=== PATIENT | male | born 1995 | race Caucasian/White ===

== ENCOUNTER 2019-03-01 11:23 | Emergency (ER) | payer OTHER ==
[~2019-03-01] VITALS: Ht 177.8 cm; Wt 88.8 kg
[2019-03-01 11:45] VITALS: BP 117/64
--- NOTE | 2019-03-01 11:47 | EKG ---
[address] [address] Test Date: 2019-03-01 Test Time: 11:34:12 Pat Name: DEB GONZALEZ Department: Room: Gender: M Physical Therapy Assistant: : 1995 Requested By: GUTIERREZ SALAS Order Number: [id number] Reading MD: Measurements Intervals [place] Rate: 84 P: 44 W[place]: 144 QRS: 38 QRSD: 88 T: 24 QT: 342 QTc: 407 Interpretive Statements SINUS RHYTHM QRS(T) CONTOUR ABNORMALITY CONSIDER ANTEROSEPTAL MYOCARDIAL DAMAGE POSSIBLY ABNORMAL ECG RI6.01 No previous ECG available for comparison
--- NOTE | 2019-03-01 11:49 | PHYS DOC ---
Past History Past Medical History: Anxiety, Asthma Past Surgical History: No Surgical History Smoking: Cigar Alcohol Use: Occasionally Drug Use: Marijuana Adult General Chief Complaint Chief Complaint: CHEST PAIN HPI HPI Patient is a 23-year-old male presents plenty of chest pain that has been present most of the past month. Increased pain with movement of his left arm. Pain is in his left chest. Also pain with deep breaths. Patient has had a intermittent mild cough. No fever. Nonproductive cough. No PE risk factors to include trauma, stasis, nor known hypercoagulable state. No relief with home medicines. Pain gets a little bit better with holding still. He was seen at his primary care office this morning and sent here for further evaluation. He reports being given ibuprofen at the office for this discomfort. Patient has a family history of grandfather having a heart attack in his 30s. [] Review of Systems Review of Systems Constitutional: Denies fever or chills [] Eyes: Denies change in visual acuity, redness, or eye pain [] HENT: Denies nasal congestion or sore throat [] Respiratory: Denies cough or shortness of breath [] Cardiovascular: No additional information not addressed in HPI [] GI: Denies abdominal pain, nausea, vomiting, bloody stools or diarrhea [] : Denies dysuria or hematuria [] Musculoskeletal: Denies back pain or joint pain [] Integument: Denies rash or skin lesions [] Neurologic: Denies headache, focal weakness or sensory changes [] Endocrine: Denies polyuria or polydipsia [] All other systems were reviewed and found to be within normal limits, except as documented in this note. Current Medications Current Medications Current Medications Medications (Trade) Dose Ordered Sig/Rosemarie Start Time Stop Time Status Last Admin Dose Admin Aspirin (Children'S Aspirin) 324 mg 1X ONCE 03/01/19 11:45 03/01/19 11:46 UNV Allergies Allergies Allergies Coded Allergies Type Severity Reaction Last Updated Verified No Known Drug Allergies 03/01/19 No Physical Exam Physical Exam Constitutional: Well developed, well nourished, no acute distress, non-toxic appearance. [] HENT: Normocephalic, atraumatic, bilateral external ears normal, oropharynx moist, no oral exudates, nose normal. [] Eyes: PERRLA, EOMI, conjunctiva normal, no discharge. [] Neck: Normal range of motion, no tenderness, supple, no stridor. [] Cardiovascular:Heart rate regular rhythm, no murmur [] Lungs & Thorax: Bilateral breath sounds clear to auscultation. Bruising under the left nipple without tenderness. Mild tenderness of the sternum as well as of the left chest with palpation. There is no flail segment noted. No crepitus. No subcutaneous emphysema. [] Abdomen: Bowel sounds normal, soft, no tenderness, no masses, no pulsatile masses. [] Skin: Warm, dry, no erythema, no rash. [] Back: No tenderness, no CVA tenderness. [] Extremities: No tenderness, no cyanosis, no clubbing, ROM intact, no edema. [] Neurologic: Alert and oriented X 3, normal motor function, normal sensory function, no focal deficits noted. [] Psychologic: Affect normal, judgement normal, mood normal. [] EKG EKG EKG shows a sinus rhythm at 84 bpm, normal axis, QTC of 407 ms, no specific ST elevations. His was interpreted by me at 1133. Patient has an EKG that was faxed from patient's primary care physician, it was performed today at 952, there are no acute EKG changes between the two.[] Radiology/Procedures Radiology/Procedures PROCEDURE: CHEST PA & LATERAL EXAM: PA and Lateral Views of the Chest DATE: 03/01/2019 11:42 AM INDICATION: chest pain x 1 month, no known heart or lung disease COMPARISON: No Prior FINDINGS: The heart is not enlarged. Mediastinal and hilar contours are normal. No focal parenchymal airspace opacity. No pleural effusion or pneumothorax. IMPRESSION: 1. No radiographic evidence for acute cardiopulmonary process.[] Course & Med Decision Making Course & Med Decision Making Pertinent Labs and Imaging studies reviewed. (See chart for details) ED course: Patient arrived, was placed in bed, and tolerated exam well. He was offered aspirin which he refused. He was transported to and from radiology with any complications. After the return of the laboratory and imaging findings, these were discussed with the patient voiced understanding. All questions were answered. He was discharged in improved condition. Vision making: Do not believe this to be an acute coronary syndrome given that his Heart score is 1 due to smoking as well as reported family history. No evidence of pneumonia, pneumothorax, pulmonary embolism, dissecting thoracic aneurysm, nor esophageal rupture. Believe this to be more of a chest wall pain given the re-creation of symptoms with palpation. Will treat as an outpatient and have him follow-up with his primary care team.[] Samuel Disclaimer Dragon Disclaimer This electronic medical record was generated, in whole or in part, using a voice recognition dictation system. Departure Departure: Impression: Primary Impression: Chest pain Disposition: HOME, SELF-CARE Condition: IMPROVED Referrals: PCP,HETAL (PCP) Patient Instructions: Chest Pain (Nonspecific) Additional Instructions: Follow-up with your regular doctor in 2 days. If you do not have regular doctor list of local clinics will be provided for you. Stop smoking! Take the medi cation as prescribed. Return to the ER if worsening chest discomfort, difficulty breathing, or any other concerns. Scripts Oxaprozin (OXAPROZIN) 600 Mg Tablet 600 MG PO BID for pin, #20 TAB Prov: GUTIERREZ SALAS DO 03/01/19 Problem Qualifiers Primary Impression: Chest pain Chest pain type: unspecified Qualified Codes: R07.9 - Chest pain, unspecified GUTIERREZ SALAS DO Mar 01, 2019 11:49
[2019-03-01 11:52] LABS: BASO % 1 % (0-3); EOS # 0.2 x10^3/uL (0.0-0.7); EOS % 3 % (0-3); HEMATOCRIT 45.1 % (39.0-53.0); HEMOGLOBIN 15.8 g/dL (13.0-17.5); LYMPH # 1.2 x10^3/uL (1.0-4.8); LYMPH % 17 % (24-48); MEAN CORPUSCULAR HEMOGLOBIN 33 pg (25-35); MEAN CORPUSCULAR HGB CONC 35 g/dL (31-37); MEAN CORPUSCULAR VOLUME 95 fL (79-100); MONO # 0.7 x10^3/uL (0.0-1.1); MONO % 10 % (0-9); NEUT % 69 % (31-73); PLATELET COUNT 286 x10^3/uL (140-400); RED BLOOD COUNT 4.75 x10^6/uL (4.30-5.70); RED CELL DISTRIBUTION WIDTH 13.4 % (11.5-14.5); WHITE BLOOD COUNT 7.2 x10^3/uL (4.0-11.0)
[2019-03-01] MEDS ORDERED: ASPIRIN 81 MG TAB.CHEW PO ONE (12:00)
--- NOTE | 2019-03-01 12:02 | RAD ---
EXAM: PA and Lateral Views of the Chest DATE: 03/01/2019 11:42 AM INDICATION: chest pain x 1 month, no known heart or lung disease COMPARISON: No Prior FINDINGS: The heart is not enlarged. Mediastinal and hilar contours are normal. No focal parenchymal airspace opacity. No pleural effusion or pneumothorax. IMPRESSION: 1. No radiographic evidence for acute cardiopulmonary process. Electronically signed by: Juan Ramon Painter MD (03/01/2019 12:00 PM) [facility]
[2019-03-01 12:10] LABS: ALBUMIN 4.1 g/dL (3.4-5.0); ALBUMIN/GLOBULIN RATIO 1.4 (1.0-1.7); CALCIUM 8.9 mg/dL (8.5-10.1); CREATININE 0.9 mg/dL (0.7-1.3); GFR 102.8; MAGNESIUM 1.8 mg/dL (1.8-2.4); POTASSIUM 4.1 mmol/L (3.5-5.1); TOTAL BILIRUBIN 0.4 mg/dL (0.2-1.0)
[2019-03-01 12:19] LABS: BARBITURATES NEG (NEG); BENZODIAZEPINES POS (NEG); CANNABINOIDS POS (NEG); COCAINE NEG (NEG); METHADONE NEG (NEG); OPIATES NEG (NEG); PHENCYCLIDINE NEG (NEG)
[2019-03-01 12:20] LABS: AMPHETAMINE/METHAMPHETAMINE NEG (NEG)
[2019-03-01 12:24] LABS: BACTERIA,URINE 0 /HPF (0-FEW); BILIRUBIN,URINE NEG (NEG); CLARITY,URINE CLEAR; COLOR,URINE YELLOW; GLUCOSE,URINE NEG (NEG); NITRITE,URINE NEG (NEG); RBC,URINE 0 /HPF (0-2); SQUAMOUS EPITHELIAL CELL,UR OCC /LPF; UROBILINOGEN,URINE 0.2 mg/dL (0.2 mg/dL)
[2019-03-01] MEDS ORDERED: OXAP600T2 PO (12:41)
== END 2019-03-01 12:51 | disposition home or self-care (01) ==
LOC: ER 11:23
DX: R07.89 Other chest pain (principal); M79.602 Pain in left arm; F41.9 Anxiety disorder, unspecified; J45.909 Unspecified asthma, uncomplicated; F17.210 Nicotine dependence, cigarettes, uncomplicated
CPT/HCPCS: 36415; 71046; 80053; 80307; 81001; 83690; 83735; 83880; 84484; 85025; 85379; 85610; 85730; 93005; 99285

== ENCOUNTER 2020-05-14 18:10 | Emergency (ER) | payer OTHER ==
[~2020-05-14] VITALS: Ht 177.8 cm; Wt 92.7 kg
[~2020-05-14 18:10] MED LIST: OXAP600T2 PO
--- NOTE | 2020-05-14 18:27 | PHYS DOC ---
Past History Past Medical History: Anxiety, Asthma, Depression Past Surgical History: No Surgical History Smoking: Cigar Alcohol Use: Occasionally Drug Use: Marijuana Adult General Chief Complaint Chief Complaint: MANIC BEHAVIOR HPI HPI Patient is a 24-year-old male patient with history of anxiety, depression, asthma, presenting to the ED today complaining of anxiety as well as 2-3 panic attack episodes that occurred today. Patient denies any suicidal/homicidal ideations. He also reports he took some Percocets from a friend. He is not able to tell us how many he took. He states this happened earlier today and was take for fun, denies and suicidal ideation when he took it. Denies any abdominal pain, nausea, vomiting. He states he needs help to get back to his anxiety and medicines including Xanax and SSRI Review of Systems Review of Systems Constitutional: Denies fever or chills [] Eyes: Denies change in visual acuity, redness, or eye pain [] HENT: Denies nasal congestion or sore throat [] Respiratory: Denies cough or shortness of breath [] Cardiovascular: No additional information not addressed in HPI [] GI: Denies abdominal pain, nausea, vomiting, bloody stools or diarrhea [] : Denies dysuria or hematuria [] Musculoskeletal: Denies back pain or joint pain [] Integument: Denies rash or skin lesions [] Neurologic: Denies headache, focal weakness or sensory changes [] Psych: Reports anxiety and panic attacks All other systems were reviewed and found to be within normal limits, except as documented in this note. Allergies Allergies Allergies Coded Allergies Type Severity Reaction Last Updated Verified No Known Drug Allergies 03/01/19 No Physical Exam Physical Exam Constitutional: Well developed, well nourished, no acute distress, non-toxic appearance. [] HENT: Normocephalic, atraumatic, bilateral external ears normal, oropharynx moist, no oral exudates, nose normal. [] Eyes: PERRLA, EOMI, conjunctiva normal, no discharge. [] Neck: Normal range of motion, no tenderness, supple, no stridor. [] Cardiovascular:Heart rate regular rhythm, no murmur [] Lungs & Thorax: Bilateral breath sounds clear to auscultation [] Abdomen: Bowel sounds normal, soft, no tenderness, no masses, no pulsatile masses. [] Skin: Warm, dry, no erythema, no rash. [] Back: No tenderness, no CVA tenderness. [] Extremities: No tenderness, no cyanosis, no clubbing, ROM intact, no edema. [] Neurologic: Alert and oriented X 3, normal motor function, normal sensory function, no focal deficits noted. [] Psychologic: Appears anxious. Restless. EKG EKG [] Radiology/Procedures Radiology/Procedures [] Heart Score Risk Factors: Risk Factors: DM, Current or recent (<one month) smoker, HTN, HLP, family history of CAD, obesity. Risk Scores: Risk Factors: DM, Current or recent (<one month) smoker, HTN, HLP, family history of CAD, obesity. Course & Med Decision Making Course & Med Decision Making Pertinent Labs and Imaging studies reviewed. (See chart for details) This is a 24-year-old male patient presenting to the ED today complaining of anxiety and panic attacks as well as taking Percocet from a friend. Patient is requesting help. Urine drug screen was positive for marijuana use, the rest of the labs are negative for any acute findings. Guidance center will be contacted, safety plan was initiated and patient was discharged. Dragon Disclaimer Dragon Disclaimer This electronic medical record was generated, in whole or in part, using a voice recognition dictation system. Departure Departure: Impression: Primary Impression: Anxiety Disposition: 01 DC HOME SELF CARE/HOMELESS Condition: STABLE Referrals: PCP,NO (PCP) Follow-up with resources provided by the guidance Center Patient Instructions: Anxiety and Panic Attacks, [id number] Additional Instructions: Please follow-up with resources provided by the guidance Center. Come back to the ED at any point symptoms worsen LULU MARTINEZ APRN May 14, 2020 18:27
[2020-05-14 18:31] VITALS: BP 142/97
[2020-05-14] MEDS ORDERED: ALPRAZolam 0.25 MG TABLET ONE (18:56)
[2020-05-14] MEDS ORDERED: ALPRAZolam 0.5 MG TABLET PO ONE (19:00)
[2020-05-14 19:06] LABS: BASO # 0.1 x10^3/uL (0.0-0.2); BASO % 0 % (0-3); EOS # 0.2 x10^3/uL (0.0-0.7); EOS % 2 % (0-3); HEMATOCRIT 48.3 % (39.0-53.0); HEMOGLOBIN 16.6 g/dL (13.0-17.5); LYMPH # 2.9 x10^3/uL (1.0-4.8); LYMPH % 21 % (24-48); MEAN CORPUSCULAR HEMOGLOBIN 33 pg (25-35); MEAN CORPUSCULAR HGB CONC 34 g/dL (31-37); MEAN CORPUSCULAR VOLUME 94 fL (79-100); MONO % 7 % (0-9); NEUT # 9.7 x10^3uL (1.8-7.7); NEUT % 70 % (31-73); PLATELET COUNT 313 x10^3/uL (140-400); RED BLOOD COUNT 5.11 x10^6/uL (4.30-5.70); RED CELL DISTRIBUTION WIDTH 13.3 % (11.5-14.5)
[2020-05-14 19:07] LABS: BARBITURATES NEG (NEG); BENZODIAZEPINES NEG (NEG); CANNABINOIDS POS (NEG); COCAINE NEG (NEG); METHADONE NEG (NEG); OPIATES NEG (NEG); PHENCYCLIDINE NEG (NEG)
[2020-05-14 19:09] LABS: CALCIUM 8.3 mg/dL (8.5-10.1); CREATININE 1.3 mg/dL (0.7-1.3); GFR 66.7; POTASSIUM 3.9 mmol/L (3.5-5.1)
[2020-05-14 19:14] LABS: ALBUMIN 3.9 g/dL (3.4-5.0); ALBUMIN/GLOBULIN RATIO 1.7 (1.0-1.7); MAGNESIUM 1.8 mg/dL (1.8-2.4); TOTAL BILIRUBIN 0.8 mg/dL (0.2-1.0); TOTAL PROTEIN 6.2 g/dL (6.4-8.2)
[2020-05-14] MEDS ORDERED: ALPRAZolam 0.25 MG TABLET PO ONE (19:15)
[2020-05-14 19:16] LABS: AMPHETAMINE/METHAMPHETAMINE NEG (NEG)
[2020-05-14 19:17] LABS: ACETAMIN < 2.0 mcg/mL (10-30); ETHANOL < 10 mg/dL (0-10); SALIC < 2.8 mg/dL (2.8-20.0)
[2020-05-14 19:23] LABS: CLARITY,URINE CLEAR; COLOR,URINE AMBER
[2020-05-14 19:24] LABS: BACTERIA,URINE 0 /HPF (0-FEW); BILIRUBIN,URINE NEG (NEG); GLUCOSE,URINE NEG (NEG); NITRITE,URINE NEG (NEG); RBC,URINE OCC /HPF (0-2); SQUAMOUS EPITHELIAL CELL,UR OCC /LPF; UROBILINOGEN,URINE 0.2 mg/dL (0.2 mg/dL); WBC,URINE OCC /HPF (0-4)
== END 2020-05-14 21:01 | disposition home or self-care (01) ==
LOC: ER 18:10
DX: F41.9 Anxiety disorder, unspecified (principal); J45.909 Unspecified asthma, uncomplicated; F32.9 Major depressive disorder, single episode, unspecified; F17.210 Nicotine dependence, cigarettes, uncomplicated; F12.10 Cannabis abuse, uncomplicated
CPT/HCPCS: 36415; 80053; 80307; 80329; 81001; 83735; 85025; 99283; G0480